=== PATIENT | female | born 1955 | race Caucasian/White ===

== ENCOUNTER 2021-05-14 11:18 | Emergency (ER) | payer MEDICAID, MEDICARE ==
[~2021-05-14] VITALS: Ht 162.6 cm; Wt 71.2 kg
--- NOTE | 2021-05-14 11:39 | NUR ---
Dr Hinojosa at the bedside for MSE.
--- NOTE | 2021-05-14 11:57 | NUR ---
Pt out of ER for CT.
[2021-05-14 11:59] LABS: BASOPHILS % (AUTO) 0.1 % (0.0-2.0); EOSINOPHILS # (AUTO) 0.4 K/uL (0.0-0.7); EOSINOPHILS % (AUTO) 3.1 % (0.0-7.0); HEMATOCRIT 47.4 % (31.2-41.9); HEMOGLOBIN 15.6 g/dL (10.9-14.3); LYMPHOCYTES # (AUTO) 0.4 K/uL (20.0-40.0); LYMPHOCYTES % (AUTO) 3.3 % (20.5-51.5); MEAN CORPUSCULAR HEMOGLOBIN 28.3 uug (24.7-32.8); MEAN CORPUSCULAR HGB CONC 33 g/dL (32.3-35.6); MEAN CORPUSCULAR VOLUME 85.9 fL (75.5-95.3); MONOCYTES # (AUTO) 0.9 K/uL (2.0-10.0); MONOCYTES % (AUTO) 6.7 % (0.0-11.0); NEUTROPHILS # (AUTO) 11.9 K/uL (1.8-8.9); NEUTROPHILS % (AUTO) 86.8 % (38.5-71.5); PLATELET COUNT (AUTO) 235 K/uL (179-408); RED BLOOD CELL COUNT(AUTO) 5.52 MIL/uL (3.63-4.92); WHITE BLOOD COUNT (AUTO) 13.7 K/uL (3.8-11.8)
--- NOTE | 2021-05-14 12:02 | NUR ---
Pt bck from CT, resting in bed.
[2021-05-14 12:05] LABS: CREATININE 1.2 mg/dL (0.6-1.3); POTASSIUM 3.8 mmol/L (3.5-5.1)
[2021-05-14] MEDS: HYDROCODONE/APAP 10-325 MG TABLET PO ONE (12:08)
[2021-05-14] MEDS ORDERED: HYDROCODONE/APAP 10-325 MG TABLET ONE (12:12)
[2021-05-14 12:17] LABS: BILIRUBIN,DIRECT 0.2 mg/dL (0.0-0.2); TOTAL PROTEIN, SERUM 7.8 g/dL (6.4-8.2)
[2021-05-14] MEDS ORDERED: AMLO-212 PO (12:44)
[2021-05-14] MEDS ORDERED: LATA2.5D15 EACHEYE (12:44)
[2021-05-14] MEDS ORDERED: VALS80TA2 PO (12:44)
[2021-05-14] MEDS ORDERED: ROSU10TA2 PO (12:44)
[2021-05-14] MEDS ORDERED: METO-357 PO (12:44)
[2021-05-14] MEDS ORDERED: COLC0.6C3 PO (12:44)
[2021-05-14 12:45] LABS: *BILIRUBIN,URIN 1+ (NEGATIVE); *CLARITY,URINE SLIGHTLY CLOUDY (CLEAR); *COLOR,URINE YELLOW (YELLOW); *KETONES,URINE 1+ (NEGATIVE); *UROBILINOGEN,URINE 0.2 E.U./dl (NORMAL); LEUKOCYTE ESTERASE ,URINE 1+ (NEGATIVE); NITRITE, URINE NEGATIVE (NEGATIVE); PH,URINE 5.5 (5.0-8.0); UGLUCOSE NEGATIVE (NEGATIVE)
[2021-05-14 12:46] LABS: *BLOOD, URINE TRACE (NEGATIVE)
[2021-05-14] MEDS: IV NORMAL SALINE 1000 ML BAG IV ONE (12:54)
[2021-05-14] MEDS ORDERED: ONDANSETRON 4 MG/2 ML VIAL ONE (13:02)
[2021-05-14] MEDS ORDERED: CEFTRIAXONE /D5W 50ML IVPB **ER PYXIS IV ONE (13:02)
[2021-05-14] MEDS: CEFTRIAXONE 1 G in IV DEXTROSE 5% 50 ML IV ONE (13:12)
[2021-05-14] MEDS: ONDANSETRON 4 MG/2 ML VIAL IV ONE (13:12)
--- NOTE | 2021-05-14 13:36 | NUR ---
ARABELLA NIXON and myself spoke to nando Garcia of [place].
[2021-05-14 13:50] LABS: BACTERIA,URINE MODERATE /HPF (NONE SEEN); MUCUS,URINE FEW /LPF (0-FEW); SQUAMOUS EPITHELIAL CELL,UR FEW /HPF (NONE SEEN); URINE AMORPHOUS URATE MODERATE /HPF; WBC,URINE 80-100 /HPF (0-3)
--- NOTE | 2021-05-14 14:04 | NUR ---
Patient is resting comfortably in bed with eyes closed, NAD noted.
--- NOTE | 2021-05-14 14:17 | NUR ---
Dr Hinojosa spoke to Rex cesar @ [place], Pt will be admitted to [facility]. Pt and family made aware and agreed. Transfer records sign by Pt and ER MD.
[2021-05-14] MEDS ORDERED: HYDR-3980 PO (15:43)
[2021-05-14] MEDS ORDERED: CEPH500C2 PO (15:43)
--- NOTE | 2021-05-14 15:45 | NUR ---
Pt decided to go home and follow up with pmd. Addendum: 05/14/21 at 1609 by JAMIE pt talked to Dr. Mata on the phone multipe times
[2021-05-14] MEDS ORDERED: TAMS-3 PO (15:47)
--- NOTE | 2021-05-14 15:55 | NUR ---
Patient discharged to home in stable condition. Written and verbal after care instructions given. Patient verbalizes understanding of instructions. Stressed follow up or return to ER for worsening s/s.pt walks in steady gait. pt accompanied by son, pt not driving, pt will folow up with pmd
--- NOTE | 2021-05-14 16:00 | NUR ---
[place] [facility] notified of the pt decision to go home.
[2021-05-14 16:08] VITALS: BP 129/81
== END 2021-05-14 16:15 | disposition home or self-care (01) ==
LOC: ER 11:18
DX: N13.6 Pyonephrosis (principal); N28.1 Cyst of kidney, acquired; I70.0 Atherosclerosis of aorta; K44.9 Diaphragmatic hernia without obstruction or gangrene; Z20.822 Contact with and (suspected) exposure to COVID-19; I49.3 Ventricular premature depolarization
CPT/HCPCS: 36415; 74176; 80048; 80076; 81001; 83605; 83690; 84484; 85025; 85730; 87086; 87426; 93005; 96365; 99285; J0696; U0003; 70030-TC; A4663; J2405; J7030